=== PATIENT | male | born 1985 | race Two or more races ===

== ENCOUNTER 2021-09-08 18:35 | Emergency (ER) | payer OTHER ==
[~2021-09-08] VITALS: Ht 175.3 cm; Wt 90.7 kg
== END 2021-09-08 22:14 | disposition home or self-care (01) ==
LOC: FSED 19:18
DX: K60.2 Anal fissure, unspecified (principal); K59.00 Constipation, unspecified; N28.89 Other specified disorders of kidney and ureter
CPT/HCPCS: 80048; 80076; 81003; 85025; 99282